=== PATIENT | female | born 1950 | race Caucasian/White ===

== ENCOUNTER 2018-06-26 12:13 | Observation (INO) ==
[2018-06-26] MEDS ORDERED: Ipratropium/Albuterol Neb 3 ML IH ONE (13:13)
--- NOTE | 2018-06-26 13:16 | Emergency Department Note ---
Disposition Clinical Impression: Respiratory distress Reactive airway disease Qualifiers: Asthma severity: severe Asthma persistence: persistent Asthma complication type: with acute exacerbation Qualified Code(s): J45.51 - Severe persistent asthma with (acute) exacerbation Disposition: Admitted As Inpatient Condition: Fair Time of Disposition: 13:16 General Adult HPI - General Chief complaint: ED Shortness of Breath/Dyspnea Stated complaint: KIMBERLEY,bronchitis Time Seen by Provider: 06/26/18 12:28 Source: patient, family Limitations: no limitations Nursing Notes Reviewed: Yes Vital Signs Reviewed: Yes - History of Present Illness HPI Narrative: Presents with shortness of breath which began Friday night and gradually worsened and he came worse on Friday and then Friday went to hold her emergency department and was prescribed medication including breathing treatment and prednisone is not improved her symptoms. Her shortness of breath is constant and worse with exertion and she does have associated chest pressure which is also worse with exertion. Get some blurred vision with exertion and she denies any fevers. Cough but no hemoptysis. Some rhinorrhea. No sneezing. No blood in the urine or stool. No pain or swelling or numbness of the extremities. No bruising of the skin or skin rash. No diagnosis of COPD. Social history: Started smoking 5 or 6 years ago and does smoke. Is here with her son and [id number]. Pain Scale: 0 - Related Data Home Medications Medication Instructions Recorded Confirmed Albuterol Sulfate [Ventolin Hfa] 2 puff IH Q4H PRN 06/26/18 06/26/18 Hydrocodone/Acetaminophen [[place] 1 tab PO BID PRN 06/26/18 06/26/18 5-325 Tablet] OxyCODONE/APAP 10/325 [Percocet 0.5 tab PO BID PRN 06/26/18 06/26/18 10/325 MG] Potassium Chloride [Klor-Con 10] 10 meq PO DAILY 06/26/18 06/26/18 RX: Gabapentin [Neurontin] 300 mg PO TID 06/26/18 06/26/18 RX: MethylPREDNISolone 1 each PO PER PKG DI 06/26/18 06/26/18 [MethylPREDNISolone Dose Pack] RX: Sertraline [Zoloft] 25 mg PO QAM 06/26/18 06/26/18 RX: Sertraline [Zoloft] 50 mg PO HS 06/26/18 06/26/18 RX: Trazodone HCl 150 mg PO HS 06/26/18 06/26/18 RX: Triamterene/HCTZ 37.5/25mg 1 tab PO DAILY 06/26/18 06/26/18 [Dyazide] levoFLOXacin [Levofloxacin] 500 mg PO DAILY 06/26/18 06/26/18 Allergies Allergy/AdvReac Type Severity Reaction Status Date / Time No Known Allergies Allergy Verified 06/26/18 21:56 All systems ED: reviewed and negative except as stated. Review of Systems: As Per HPI Past Medical History - Past Medical History Medical history: Reports: hypertension Psychiatric history: Reports: no psych history - Social History Smoking Status: Current every day smoker Smokeless Tobacco Status: No Alcohol use: Reports: heavy Drug use: Reports: none Physical Exam CONSTITUTIONAL: Alert and oriented X3, well-nourished, well appearing, in moderate respiratory distress HEAD: Normocephalic; atraumatic. EYES: PERRL, no scleral icterus. NOSE: The nose is normal in appearance without rhinorrhea RESP: Normal chest excursion with respiration; breath sounds with bilateral wheezing which is symmetric CARD: Regular rhythm, without murmurs, rub or gallop ABD: Non-distended; non-tender, soft,without rigidity, rebound or guarding SKIN: Normal for age and race; warm and dry; no apparent lesions EXTREMITIES: Pulses are 2 plus and equal times 4 extremities, no peripheral edema or calf muscle pain. - General Limitations: no limitations General appearance: alert Course Vital Signs Temperature 97.8 F 06/26/18 12:18 Pulse Rate 60 06/26/18 12:18 Respiratory Rate 22 06/26/18 12:18 Blood Pressure 176/65 06/26/18 12:18 O2 Sat by Pulse Oximetry 99 06/26/18 12:18 Temperature 98.4 F 06/26/18 19:53 Pulse Rate 65 06/26/18 19:53 Respiratory Rate 18 06/26/18 19:53 Blood Pressure 155/67 06/26/18 19:53 O2 Sat by Pulse Oximetry 100 06/26/18 19:53 Oxygen Delivery Oxygen Delivery Room Air Medical Decision Making - MDM Narrative Medical decision making narrative: The patient will have 3 duo nebs, chest x-ray, IV Solu-Medrol, labs. EKG. She does have respiratory distress and will be admitted for likely COPD exacerbation. We are attempting to get the records from [facility]. 1328 I did review the EKG showing normal sinus rhythm with a rate of 60 and without acute ischemic change or evidence of [id number] I did review the records from [facility] and she did have a CT scan which was a CTA of the chest which is negative for pulmonary embolism, had a ultrasound so troponin which was just at the lower limit of abnormal at 0.056, she also had a BNP which is only minimally elevated. Chest x-ray negative here. I do not suspect heart failure. She does have bilateral wheezing. Most consistent with COPD exacerbation. With respiratory distress she will be admitted to the hospital. With a negative chest x-ray and the negative CT from [facility] I will start her on IV antibiotics and we will put her on Rocephin and Zithromax 1411 I did review the patient's final test results. I did speak with the hospitalist who accepts the patient for admission for COPD exacerbation. Her BNP is elevated and we did discuss the possibility of echocardiogram as an inpatient however without having findings of peripheral edema or pulmonary edema most likely the reason for her respiratory distress is the COPD exacerbation 1453 - Medical Records Medical records reviewed: Yes I reviewed the patient's medical records. - Lab Data Lab results reviewed: Yes I reviewed the patient's lab results. Result diagrams: 06/26/18 13:38 06/26/18 13:38 Lab Results 06/26/18 06/26/18 06/26/18 Range/Units 13:38 13:38 13:38 WBC 10.5 (4.3-11.1) K/mcL RBC 4.82 (3.82-4.97) M/mcL Hgb 15.4 (11.5-15.4) g/dL Hct 44.7 (35.3-44.9) % MCV 92.7 (83.0-100.0) fL MCH 32.0 (28.0-33.3) pg MCHC 34.5 (31.6-35.5) g/dL RDW 13.0 (11.5-14.5) % Plt Count 177 (140-400) K/mcL MPV 9.3 L (9.4-12.4) fL Immature Gran % 0.4 (0-4) % Seg Neutrophils % 78.4 % Lymphocytes % 13.2 % Monocytes % 7.4 % Eosinophils % 0.1 % Basophils % 0.5 % Neutrophils # 8.2 (1.6-8.9) K/mcL Lymphocytes # 1.4 (0.6-4.6) K/mcL Monocytes # 0.8 (0.0-1.3) K/mcL Eosinophils # 0.0 (0.0-0.6) K/mcL Basophils # 0.1 (0.0-0.2) K/mcL Sodium 133 L (136-145) mEq/L Potassium 3.2 L (3.5-5.1) mEq/L Chloride 104 (98-107) mEq/L Carbon Dioxide 22 L (23-29) mEq/L BUN 13 (8-23) mg/dL Creatinine 0.81 (0.60-1.20) mg/dL Est GFR ( Amer) > 60 (> 60) Est GFR (Non-Af Amer) > 60 (> 60) BUN/Creatinine Ratio 16 (6-26) Glucose 106 H (70-105) mg/dL Calculated Osmolality 277 L (280-300) Calcium 10.0 (8.6-10.3) mg/dL Troponin I < 0.03 (< 0.04) ng/mL B-Natriuretic Peptide 606 H (Less than 100) pg/mL - Radiology Data Radiology results reviewed: Yes I reviewed the patient's radiology results. Critical Care Time Critical Care Time: Yes Total Critical Care Time: 30 Attestation: Patient has critical care time spent with a respiratory distress, administration of multiple medications, review previous records including records from [facility] including imaging and testing from there as well as the testing from here and discussion with the hospitalist here
[2018-06-26] MEDS: methylPREDNISolone 125 MG/2 ML VIAL IVP ONE ×2 (13:23→15:34)
[2018-06-26 13:58] LABS: Basophils # 0.1 K/mcL (0.0-0.2); Basophils % 0.5 %; Eosinophils % 0.1 %; Hematocrit 44.7 % (35.3-44.9); Hemoglobin 15.4 g/dL (11.5-15.4); Immature Granulocytes % 0.4 % (0-4); Lymphocytes # 1.4 K/mcL (0.6-4.6); Lymphocytes % 13.2 %; Mean Corpuscular HGB Conc 34.5 g/dL (31.6-35.5); Mean Corpuscular Volume 92.7 fL (83.0-100.0); Mean Platelet Volume 9.3 fL (9.4-12.4); Monocytes # 0.8 K/mcL (0.0-1.3); Monocytes % 7.4 %; Neutrophils # 8.2 K/mcL (1.6-8.9); Platelet Count 177 K/mcL (140-400); Red Blood Count 4.82 M/mcL (3.82-4.97); Segmented Neutrophils % 78.4 %
[2018-06-26] MEDS ORDERED: Azithromycin 500 MG in D5% in Water 250 ML IVPB ONE (14:11)
[2018-06-26] MEDS ORDERED: cefTRIAXone 1,000 MG in Water for inj. (sterile) 20 ML 10 ML IVP ONE (14:20)
[2018-06-26 14:23] LABS: BUN/Creatinine Ratio 16 (6-26); Blood Urea Nitrogen 13 mg/dL (8-23); Carbon Dioxide 22 mEq/L (23-29); Chloride 104 mEq/L (98-107); Glucose 106 mg/dL (70-105); Osmolality,Calculated 277 (280-300); Potassium 3.2 mEq/L (3.5-5.1); Sodium 133 mEq/L (136-145); Troponin I < 0.03 ng/mL (< 0.04); eGFR For Non-African Americans > 60 (> 60)
[2018-06-26] MEDS ORDERED: Ondansetron 4 MG/2 ML VIAL IVP PRN (14:51)
[2018-06-26] MEDS ORDERED: Naloxone 0.4 MG/ML INJ IVP PRN (14:51)
[2018-06-26] MEDS ORDERED: *HR* Labetalol 20 MG/4 ML SYRINGE IVP PRN (14:53)
[2018-06-26] MEDS ORDERED: predniSONE 20 MG TABLET PO ONE (15:30)
[2018-06-26] MEDS ORDERED: Azithromycin 250 MG TABLET PO ONE (15:30)
[2018-06-26] MEDS: Ipratropium/Albuterol Neb 3 ML IH SCH ×3 (15:32→23:23)
[2018-06-26] MEDS ORDERED: *HR* OxyCODONE/APAP 10/325 TABLET PO ONE (15:54)
--- NOTE | 2018-06-26 15:59 | Internal Med History&Physical ---
Date of Encounter: 06/26/18 Time of Encounter: 15:00 Internal Medicine - H&P: HPI Chief complaint: Shortness of breath Admitted From: Home History of present illness: Ms. Hodges is a 67 year old female with history of chronic low back pain, anxiety, tobacco abuse, presented to the ED with 5 day history of shortness of breath. She was initially seen at [facility] ER on 06/23 for the same complaint, had CTA done which was negative for PE/PNA, and was subsequently discharged home with a course of steroid as well as Ventolin PRN. However, her symptoms progressed since then and she decided to come to the ED for further evaluation. Complains of mild cough with sputum production but denies any chest pain, palpitation, orthopnea, PND, or leg swelling. No recent immobilization or surgery. Unsure of sick contacts. Denies any GI/ symptoms. In the ED, she was afebrile and hemodynamically stable. Saturating 97-100% on room air. Labwork was largely unremarkable except for mildly elevated BNP. Troponin negative, normal white blood cell count. X-ray did not show any significant cardiopulmonary process including pulmonary edema. EKG showed normal sinus rhythm without STT changes concerning for ischemia. Patient was given IV Solu-Medrol, bronchodilators, antibiotics, and admitted for further management. Past Med Surg Social Fam HX - Past Medical History Attestation: Yes The following information was validated with the patient. Medical history: hypertension Additional medical history: tobacco abuse ?COPD Psychiatric history: anxiety - Past Surgical History Additional surgical history: back surgery - Social History Smoking Status: Current every day smoker Smokeless Tobacco Status: No Alcohol use: heavy Drug use: none - Additional Family History Additional family history: Reviewed and noncontributory Internal Medicine - H&P: Meds Allergy/AdvReac Type Severity Reaction Status Date / Time No Known Allergies Allergy Verified 06/26/18 12:30 All Systems PM: A 10-system review of systems was performed and is negative for pertinent findings except as documented above in the HPI. - Constitutional Vitals: Temp Pulse Resp BP Pulse Ox 97.8 F 66 16 146/60 99 06/26/18 12:31 06/26/18 15:40 06/26/18 15:40 06/26/18 15:40 06/26/18 15:40 Exam: General: Alert and oriented, mild distress but able to speak in full sentences HEENT:EOMI, pupils equal, round and reactive. Cardiovascular:Normal S1 & S2, No JVD. Pulse regular. Lungs: scattered wheezes bilaterally Abdomen:Soft, non-tender, no rigidity. Extremities:No deformity or swelling Neurological:Anxious looking, grossly non-focal Skin:Normal color, no rash, no lesions. Pulses:Carotid and radial pulses normal +2. Rest of the physical exam is non contributory Internal Med - H&P Results - Labs CBC & Chem 7: 06/26/18 13:38 06/26/18 13:38 Labs: Short CBC 06/26/18 Range/Units 13:38 WBC 10.5 (4.3-11.1) K/mcL Hgb 15.4 (11.5-15.4) g/dL Hct 44.7 (35.3-44.9) % Plt Count 177 (140-400) K/mcL Neutrophils # 8.2 (1.6-8.9) K/mcL BMP 06/26/18 13:38 Sodium 133 L Potassium 3.2 L Chloride 104 Carbon Dioxide 22 L BUN 13 Creatinine 0.81 Glucose 106 H Calcium 10.0 Cardiac Enzymes 06/26/18 Range/Units 13:38 Troponin I < 0.03 (< 0.04) ng/mL - Impressions ITS Impressions Chest X-Ray 06/26/18 13:13 IMPRESSION: No radiographic evidence of acute cardiopulmonary disease. D/ / Edward Romero / Edward Romero Interpreting Provider: Edward Romero - Assessment and Plan (1) COPD exacerbation Current Visit: Yes Status: Acute Assessment and plan: History of extensive second-hand exposure as well as 6 pack year smoking history, admitted for progressive SOB despite being on steroids and PRN ventolin extensive workup at [facility] 3 days ago, -ve for PE/PNA no infiltrate on CXR, no fever/leukocytosis given solumedrol and bronchodilator in the ED, continue add macrolide for 5 days check resp infection panel smoking cessation emphasized PFT outpatient to establish diagnosis will get echocardiogram given elevated BNP although she does not clinically appear to be in fluid overload (2) Anxiety Current Visit: Yes Status: Acute Assessment and plan: PRN ativan (3) Tobacco abuse Current Visit: Yes Status: Chronic Assessment and plan: smoking cessation emphasized NRT (4) Chronic low back pain Current Visit: Yes Status: Chronic Assessment and plan: supposedly on percocet 10-325 PRN at home, not sure of frequency restart meds when reconciled Qualifiers: Back pain laterality: midline Sciatica presence: without sciatica Qualified Code(s): M54.5 - Low back pain; G89.29 - Other chronic pain (5) DVT prophylaxis Current Visit: Yes Status: Acute Assessment and plan: SQ heparin - Time Spent With Patient Total time spent is greater than 50% in coordination of care (as documented) at patient's floor/unit and/or counseling patient: 25 - 35 minutes
[2018-06-26] MEDS: *HR* Heparin 5,000 UNIT/ML VIAL SQ SCH (17:54)
[2018-06-26] MEDS: Nicotine 21 MG PATCH.TD24 TD SCH (17:54)
[2018-06-26 19:07] LABS: Adenovirus Not Detected (Not Detect); Bordetella Pertussis Not Detected (Not Detect); Chlamydophila pneumoniae Not Detected (Not Detect); Coronavirus 229E Not Detected (Not Detect); Coronavirus HKU1 Not Detected (Not Detect); Coronavirus NL63 Not Detected (Not Detect); Coronavirus OC43 Not Detected (Not Detect); Human Metapneumovirus Not Detected (Not Detect); Human Rhinovirus/Enterovirus Not Detected (Not Detect); Influenza A Subtype 2009 H1 Not Detected (Not Detect); Influenza A Untypeable Not Detected (Not Detect); Influenza B Not Detected (Not Detect); Mycoplasma pneumoniae Not Detected (Not Detect); Parainfluenza Virus 1 Not Detected (Not Detect); Parainfluenza Virus 2 Not Detected (Not Detect); Parainfluenza Virus 3 Not Detected (Not Detect); Parainfluenza Virus 4 Not Detected (Not Detect); Respiratory Syncytial Virus Not Detected (Not Detect)
[2018-06-26] MEDS: traZODone 50 MG TABLET PO SCH (23:48)
[2018-06-26] MEDS: Gabapentin 300 MG CAPSULE PO SCH (23:48)
[2018-06-27] MEDS: Ipratropium/Albuterol Neb 3 ML IH SCH ×5 (04:14→19:58)
[2018-06-27 05:42] LABS: Basophils % 0.3 %; Eosinophils % 0.1 %; Hematocrit 40.5 % (35.3-44.9); Immature Granulocytes % 0.5 % (0-4); Lymphocytes # 1.2 K/mcL (0.6-4.6); Mean Corpuscular HGB Conc 33.6 g/dL (31.6-35.5); Mean Corpuscular Hemoglobin 31.8 pg (28.0-33.3); Mean Corpuscular Volume 94.6 fL (83.0-100.0); Monocytes # 0.6 K/mcL (0.0-1.3); Monocytes % 8.1 %; Neutrophils # 5.7 K/mcL (1.6-8.9); Platelet Count 172 K/mcL (140-400); Red Blood Count 4.28 M/mcL (3.82-4.97); Red Cell Distribution Width 13.2 % (11.5-14.5)
[2018-06-27 05:53] LABS: Hemoglobin 13.6 g/dL (11.5-15.4)
[2018-06-27 05:59] LABS: BUN/Creatinine Ratio 17 (6-26); Blood Urea Nitrogen 12 mg/dL (8-23); Carbon Dioxide 24 mEq/L (23-29); Chloride 110 mEq/L (98-107); Glucose 118 mg/dL (70-105); Magnesium 1.7 mg/dL (1.6-2.6); Osmolality,Calculated 285 (280-300); Potassium 3.1 mEq/L (3.5-5.1); Sodium 137 mEq/L (136-145); eGFR For Non-African Americans > 60 (> 60)
[2018-06-27] MEDS: *HR* Heparin 5,000 UNIT/ML VIAL SQ SCH ×2 (06:17→17:46)
[2018-06-27] MEDS: Gabapentin 300 MG CAPSULE PO SCH ×3 (08:55→20:58)
[2018-06-27] MEDS: Nicotine 21 MG PATCH.TD24 TD SCH (08:55)
[2018-06-27] MEDS: MethylPREDNISolone 40 MG/ML VIAL IVP SCH ×2 (08:59→17:46)
--- NOTE | 2018-06-27 11:32 | Internal Med Progress Note ---
Hospitalist Progress Note - Encounter Date of Encounter: 06/27/18 Time of Encounter: 11:00 - Subjective Interval History: Patient is a 67-year-old female with past medical history significant for smoking and COPD who presents with shortness of breath found to have COPD exacerbation. - Exam Vitals: Temp Pulse Resp BP Pulse Ox 98.2 F 59 16 135/75 94 06/27/18 06:34 06/27/18 06:34 06/27/18 07:22 06/27/18 06:34 06/27/18 09:00 Exam: Gen.: Nonacute distress, alert and oriented 3 ENT: Mucosal membranes moist Respiratory: Lungs are clear to auscultation bilaterally without any wheezing rhonchi or rales Cardiovascular: Normal S1 and S2 regular rate rhythm no murmurs rubs or gallops Abdomen: Soft, nontender and nondistended with positive bowel sounds Extremities: No lower extremity edema Skin: Normal color - Assessment and Plan (1) COPD exacerbation Current Visit: Yes Status: Acute Assessment and Plan: Patient's acute hypoxic respiratory failure has resolved and is on room air Will continue IV Solu-Medrol in addition to IV azithromycin with scheduled DuoNeb's (2) Anxiety Current Visit: Yes Status: Acute Assessment and Plan: PRN ativan (3) Hypokalemia Current Visit: Yes Status: Acute Assessment and Plan: Potassium was 3.2 on admission and 3.1 this morning Patient currently receives potassium chloride 10 mEq daily Will give an additional 40 mEq this morning and monitor (4) Chronic low back pain Current Visit: Yes Status: Chronic Assessment and Plan: Continue home dose of pain medication (5) Tobacco abuse Current Visit: Yes Status: Chronic Assessment and Plan: Nicotine replacement as needed DVT Prophylaxis: Heparin subcutaneous - Time Spent with Patient Total time spent is greater than 50% in coordination of care (as documented) at patient's floor/unit and/or counseling patient: Internal Medicine: Result - Labs CBC & Chem 7: 06/27/18 04:00 06/27/18 04:00 Labs: Short CBC 06/26/18 06/27/18 Range/Units 13:38 04:00 WBC 10.5 7.6 (4.3-11.1) K/mcL Hgb 15.4 13.6 D (11.5-15.4) g/dL Hct 44.7 40.5 (35.3-44.9) % Plt Count 177 172 (140-400) K/mcL Neutrophils # 8.2 5.7 (1.6-8.9) K/mcL BMP 06/26/18 06/27/18 13:38 04:00 Sodium 133 L 137 Potassium 3.2 L 3.1 L Chloride 104 110 H Carbon Dioxide 22 L 24 BUN 13 12 Creatinine 0.81 0.72 Glucose 106 H 118 H Calcium 10.0 9.0 Cardiac Enzymes 06/26/18 Range/Units 13:38 Troponin I < 0.03 (< 0.04) ng/mL - Impressions Impressions Chest X-Ray 06/26/18 13:13 IMPRESSION: No radiographic evidence of acute cardiopulmonary disease. D/ / Edward Romero / Edward Romero Interpreting Provider: Edward Romero Consult Discharge Plan - Plan Referrals: Alexandro Olivier DO [Primary Care Provider] - (4) Chronic low back pain Qualifiers: Back pain laterality: midline Sciatica presence: without sciatica Qualified Code(s): M54.5 - Low back pain; G89.29 - Other chronic pain
[2018-06-27] MEDS: *HR* HYDROcodone/Acet 5/325 mg TABLET PO PRN ×2 (14:26→23:00)
[2018-06-27] MEDS: Azithromycin 250 MG TABLET PO SCH (14:26)
[2018-06-27] MEDS: traZODone 50 MG TABLET PO SCH (20:58)
[2018-06-28] MEDS: Ipratropium/Albuterol Neb 3 ML IH SCH ×7 (00:37→23:24)
[2018-06-28] MEDS: *HR* Heparin 5,000 UNIT/ML VIAL SQ SCH ×2 (06:09→18:22)
[2018-06-28] MEDS: MethylPREDNISolone 40 MG/ML VIAL IVP SCH ×2 (06:23→18:22)
[2018-06-28] MEDS: Gabapentin 300 MG CAPSULE PO SCH ×3 (08:48→20:38)
[2018-06-28] MEDS: *HR* HYDROcodone/Acet 5/325 mg TABLET PO PRN ×2 (08:48→20:38)
[2018-06-28] MEDS: Nicotine 21 MG PATCH.TD24 TD SCH (08:48)
--- NOTE | 2018-06-28 11:13 | Internal Med Progress Note ---
Hospitalist Progress Note - Encounter Date of Encounter: 06/28/18 Time of Encounter: 11:00 - Subjective Interval History: Patient is a 67-year-old female with past medical history significant for smoking and COPD who presents with shortness of breath found to have COPD exacerbation. - Exam Vitals: Temp Pulse Resp BP Pulse Ox 98.1 F 54 16 154/79 95 06/28/18 06:53 06/28/18 06:53 06/28/18 07:29 06/28/18 06:53 06/28/18 08:53 Exam: Gen.: Nonacute distress, alert and oriented 3 ENT: Mucosal membranes moist Respiratory: Lungs are clear to auscultation bilaterally without any wheezing rhonchi or rales Cardiovascular: Normal S1 and S2 regular rate rhythm no murmurs rubs or gallops Abdomen: Soft, nontender and nondistended with positive bowel sounds Extremities: No lower extremity edema Skin: Normal color - Assessment and Plan (1) COPD exacerbation Current Visit: Yes Status: Acute Assessment and Plan: Patient's acute hypoxic respiratory failure has resolved and is on room air Will continue day 2 of IV azithromycin in addition to scheduled dual nebs and IV Solu-Medrol (2) Anxiety Current Visit: Yes Status: Acute Assessment and Plan: PRN ativan (3) Hypokalemia Current Visit: Yes Status: Acute Assessment and Plan: Potassium was 3.2 on admission and 3.1 yesterday She was given an additional dose of 40 mEq of KCl in addition to her daily dose of 10 mEq Will continue to monitor (4) Chronic low back pain Current Visit: Yes Status: Chronic Assessment and Plan: Continue home dose of pain medication (5) Tobacco abuse Current Visit: Yes Status: Chronic Assessment and Plan: Nicotine replacement as needed DVT Prophylaxis: Heparin subcutaneous - Time Spent with Patient Total time spent is greater than 50% in coordination of care (as documented) at patient's floor/unit and/or counseling patient: Internal Medicine: Result - Labs CBC & Chem 7: 06/28/18 11:30 06/28/18 11:30 - Impressions Impressions Echocardiogram 06/26/18 15:54 Impressions: LVEF 60%. Mild left ventricular diastolic dysfunction. Normal right ventricular structure and function. Moderately dilated left atrium. Mild aortic stenosis. Unable to estimate RVSP due to lack of TR jet. Left Ventricular Wall Motion: Rest Echo Findings All wall segments showed normal motion. Findings: Study Quality * Technically adequate exam. ECG Findings * Normal sinus rhythm. Left Ventricle * LVEF 60%. * Mildly dilated left ventricle. * Mild left ventricular diastolic dysfunction. Right Ventricle * Normal right ventricular structure and function. Left Atrium * Moderately dilated left atrium. Right Atrium * Normal right atrial size. Interatrial Septum * No evidence of PFO by color Doppler. Aortic Valve * Trileaflet aortic valve. * Mild aortic stenosis. * The estimated aortic valve area was approximately 1.6 cm2. * Mild aortic regurgitation. * Mildly sclerotic aortic valve leaflets. Mitral Valve * Normal mitral valve structure. * No mitral regurgitation. * No mitral stenosis. Tricuspid Valve * Trace tricuspid regurgitation. * No tricuspid stenosis. * Normal tricuspid valve structure. * Unable to estimate RVSP due to lack of TR jet. Pulmonic Valve * Trace pulmonic regurgitation. Aorta * Normally sized aortic root. Pericardium * The pericardium appears normal. IVC * Normal IVC dimensions and inspiratory collapse. Pulmonary Artery * Normal visualized portions of the main pulmonary artery. Consult Discharge Plan - Plan Referrals: Alexandro Olivier DO [Primary Care Provider] - (Follow up appointment has been requested. Office will call with date and time of appointment. ) (4) Chronic low back pain Qualifiers: Back pain laterality: midline Sciatica presence: without sciatica Qualified Code(s): M54.5 - Low back pain; G89.29 - Other chronic pain
[2018-06-28 11:48] LABS: Basophils % 0.1 %; Eosinophils % 0.1 %; Hematocrit 43.6 % (35.3-44.9); Hemoglobin 14.7 g/dL (11.5-15.4); Immature Granulocytes % 0.5 % (0-4); Lymphocytes # 0.7 K/mcL (0.6-4.6); Lymphocytes % 7.3 %; Mean Corpuscular HGB Conc 33.7 g/dL (31.6-35.5); Mean Corpuscular Hemoglobin 32.1 pg (28.0-33.3); Mean Corpuscular Volume 95.2 fL (83.0-100.0); Monocytes # 0.4 K/mcL (0.0-1.3); Monocytes % 4.6 %; Neutrophils # 8.3 K/mcL (1.6-8.9); Platelet Count 202 K/mcL (140-400); Red Blood Count 4.58 M/mcL (3.82-4.97); Red Cell Distribution Width 13.3 % (11.5-14.5); Segmented Neutrophils % 87.4 %
[2018-06-28 12:08] LABS: BUN/Creatinine Ratio 27 (6-26); Blood Urea Nitrogen 25 mg/dL (8-23); Calcium 9.3 mg/dL (8.6-10.3); Carbon Dioxide 22 mEq/L (23-29); Chloride 107 mEq/L (98-107); Glucose 152 mg/dL (70-105); Osmolality,Calculated 291 (280-300); Sodium 137 mEq/L (136-145); eGFR For Non-African Americans 59 (> 60)
[2018-06-28] MEDS: Azithromycin 250 MG TABLET PO SCH (15:01)
[2018-06-28] MEDS: *HR* LORazepam 2 MG/ML VIAL IVP PRN (20:29)
[2018-06-28] MEDS: traZODone 50 MG TABLET PO SCH (20:38)
[2018-06-29] MEDS ORDERED: Ipratropium/Albuterol Neb 3 ML IH PRN (03:32)
[2018-06-29] MEDS: *HR* Heparin 5,000 UNIT/ML VIAL SQ SCH ×2 (05:25→18:04)
[2018-06-29] MEDS: MethylPREDNISolone 40 MG/ML VIAL IVP SCH ×2 (05:28→18:04)
[2018-06-29] MEDS: *HR* LORazepam 2 MG/ML VIAL IVP PRN ×2 (06:08→15:50)
[2018-06-29] MEDS: Gabapentin 300 MG CAPSULE PO SCH ×2 (09:27→14:42)
[2018-06-29] MEDS: Nicotine 21 MG PATCH.TD24 TD SCH (09:28)
--- NOTE | 2018-06-29 10:09 | Internal Med Progress Note ---
Hospitalist Progress Note - Encounter Date of Encounter: 06/29/18 - Exam Vitals: Temp Pulse Resp BP Pulse Ox 98.1 F 59 16 122/74 96 06/29/18 07:23 06/29/18 07:23 06/29/18 07:23 06/29/18 07:23 06/29/18 09:44 - Assessment and Plan (1) COPD exacerbation Current Visit: Yes Status: Acute (2) Anxiety Current Visit: Yes Status: Acute (3) Hypokalemia Current Visit: Yes Status: Acute (4) Chronic low back pain Current Visit: Yes Status: Chronic (5) Tobacco abuse Current Visit: Yes Status: Chronic - Time Spent with Patient Total time spent is greater than 50% in coordination of care (as documented) at patient's floor/unit and/or counseling patient: Internal Medicine: Result - Labs CBC & Chem 7: 06/28/18 11:30 06/28/18 11:30 Labs: Short CBC 06/28/18 Range/Units 11:30 WBC 9.5 (4.3-11.1) K/mcL Hgb 14.7 (11.5-15.4) g/dL Hct 43.6 (35.3-44.9) % Plt Count 202 (140-400) K/mcL Neutrophils # 8.3 (1.6-8.9) K/mcL BMP 06/28/18 11:30 Sodium 137 Potassium 4.0 Chloride 107 Carbon Dioxide 22 L BUN 25 H Creatinine 0.94 Glucose 152 H Calcium 9.3 Consult Discharge Plan - Plan Referrals: Alexandro Olivier DO [Primary Care Provider] - 07/07/18 1:00 pm () (4) Chronic low back pain Qualifiers: Back pain laterality: midline Sciatica presence: without sciatica Qualified Code(s): M54.5 - Low back pain; G89.29 - Other chronic pain
[2018-06-29 11:56] LABS: Basophils % 0.2 %; Eosinophils % 0.1 %; Hematocrit 46.4 % (35.3-44.9); Hemoglobin 15.6 g/dL (11.5-15.4); Immature Granulocytes % 0.6 % (0-4); Lymphocytes # 0.8 K/mcL (0.6-4.6); Lymphocytes % 7.5 %; Mean Corpuscular HGB Conc 33.6 g/dL (31.6-35.5); Mean Corpuscular Hemoglobin 32.4 pg (28.0-33.3); Mean Corpuscular Volume 96.5 fL (83.0-100.0); Monocytes # 0.5 K/mcL (0.0-1.3); Monocytes % 4.4 %; Neutrophils # 9.4 K/mcL (1.6-8.9); Platelet Count 224 K/mcL (140-400); Red Blood Count 4.81 M/mcL (3.82-4.97); Red Cell Distribution Width 13.2 % (11.5-14.5); Segmented Neutrophils % 87.2 %
[2018-06-29 12:02] VITALS: BP 162/82
[2018-06-29 12:25] LABS: BUN/Creatinine Ratio 27 (6-26); Blood Urea Nitrogen 24 mg/dL (8-23); Calcium 9.3 mg/dL (8.6-10.3); Carbon Dioxide 21 mEq/L (23-29); Chloride 108 mEq/L (98-107); Glucose 143 mg/dL (70-105); Osmolality,Calculated 293 (280-300); Potassium 4.2 mEq/L (3.5-5.1); Sodium 138 mEq/L (136-145); eGFR For Non-African Americans > 60 (> 60)
[2018-06-29] MEDS: Azithromycin 250 MG TABLET PO SCH (14:42)
--- NOTE | 2018-06-29 16:08 | Discharge Summary ---
Orders not resulted at time of discharge: Pending orders 06/28/18 15:23 Culture,Stool [RM] Routine Date of Encounter: 06/29/18 Time of Encounter: 11:00 - Discharge Diagnosis (1) COPD exacerbation Priority: Primary Status: Acute (2) Anxiety Priority: Primary Status: Acute (3) Hypokalemia Priority: Primary Status: Acute (4) Chronic low back pain Priority: Primary Status: Chronic Qualifiers: Back pain laterality: midline Sciatica presence: without sciatica Qualified Code(s): M54.5 - Low back pain; G89.29 - Other chronic pain (5) Tobacco abuse Priority: Primary Status: Chronic Hospital course: Patient is a 67-year-old female with past medical history significant for chronic low back pain, anxiety, tobacco abuse, presented with shortness of breath. During patients hospital stay she was treated for COPD exacerbation which improved on IV antibiotics and IV Solu-Medrol. During patients hospital stay she was also given IV Ativan as needed for anxiety. Patient on day of discharge was very emotional and admits that depression and anxiety is getting worse after the of her . She denied any suicidal ideation however. Patient was recommended to follow-up with primary care provider as an outpatient who had been managing her depression/anxiety and patient agreed. Patient was discharged with a 30 day prescription for SSRI but not for benzodiazepines. Patient also will be discharged to complete a 5 day course of azithromycin and prednisone for COPD exacerbation. - Time Spent with Patient Total time spent providing and/or coordinating discharge services: Time spent: Greater than 30 minutes - Discharge Medications Prescriptions: New Azithromycin [Zithromax] 500 mg PO DAILY@1400 #10 tablet predniSONE [PredniSONE] 40 mg PO DAILY 5 Days #10 tablet Sertraline [Zoloft] 50 mg PO HS 30 Days tablet Continue Albuterol Sulfate [Ventolin Hfa] 2 puff IH Q4H PRN PRN Reason: Shortness Of Breath Gabapentin [Neurontin] 300 mg PO TID Hydrocodone/Acetaminophen [[place] 5-325 Tablet] 1 tab PO BID PRN PRN Reason: Pain MethylPREDNISolone [MethylPREDNISolone Dose Pack] 1 each PO PER PKG DI OxyCODONE/APAP 10/325 [Percocet 10/325 MG] 0.5 tab PO BID PRN PRN Reason: Pain Potassium Chloride [Klor-Con 10] 10 meq PO DAILY Sertraline [Zoloft] 50 mg PO HS Trazodone HCl 150 mg PO HS Triamterene/HCTZ 37.5/25mg [Dyazide] 1 tab PO DAILY Sertraline [Zoloft] 25 mg PO QAM #30 tablet Discontinued levoFLOXacin [Levofloxacin] 500 mg PO DAILY Home Medications: Albuterol Sulfate [Ventolin Hfa] 2 puff IH Q4H PRN 06/26/18 [History] Gabapentin [Neurontin] 300 mg PO TID 06/26/18 [History] Hydrocodone/Acetaminophen [[place] 5-325 Tablet] 1 tab PO BID PRN 06/26/18 [History] MethylPREDNISolone [MethylPREDNISolone Dose Pack] 1 each PO PER PKG DI 06/26/18 [History] OxyCODONE/APAP 10/325 [Percocet 10/325 MG] 0.5 tab PO BID PRN 06/26/18 [History] Potassium Chloride [Klor-Con 10] 10 meq PO DAILY 06/26/18 [History] Sertraline [Zoloft] 50 mg PO HS 06/26/18 [History] Trazodone HCl 150 mg PO HS 06/26/18 [History] Triamterene/HCTZ 37.5/25mg [Dyazide] 1 tab PO DAILY 06/26/18 [History] Azithromycin [Zithromax] 500 mg PO DAILY@1400 #10 tablet 06/29/18 [Rx] Sertraline [Zoloft] 25 mg PO QAM #30 tablet 06/29/18 [Rx] Sertraline [Zoloft] 50 mg PO HS 30 Days tablet 06/29/18 [Rx] predniSONE [PredniSONE] 40 mg PO DAILY 5 Days #10 tablet 06/29/18 [Rx] Allergies/Adverse Reactions: Allergy/AdvReac Type Severity Reaction Status Date / Time No Known Allergies Allergy Verified 06/26/18 21:56 Date of admission: 06/26/18 15:01 Primary care physician: Alexandro Olivier DO Consults: 06/26/18 15:51 Consult to Invasive Line Access Team [CONS] Routine Reason for Consult: limited access Line Type: EPIV 06/29/18 08:32 Consult to Nurse Navigator [CONS] Routine Comment: COPD - Constitutional Vitals: Temp Pulse Resp BP Pulse Ox 98.3 F 66 16 162/82 95 06/29/18 12:01 06/29/18 12:01 06/29/18 12:01 06/29/18 12:01 06/29/18 12:01 Exam: Gen.: Nonacute distress, alert and oriented 3 Skin: Normal color - Patient Status Disposition: Home, Self-Care Condition: Fair - Discharge Instructions Instructions: Chronic Obstructive Pulmonary Disease (DC) Follow Up With: Alexandro Olivier DO [Primary Care Provider] - 07/07/18 1:00 pm ()
--- NOTE | 2018-06-30 11:18 | Electrocardiograph Report ---
[facility] Test Date: 2018-06-26 Pat Name: Daina Hodges Department: [id number] Room: 3B22 Gender: Business Analytics Analyst: : [id number] Requested By: Griffin Monroe Order Number: [id number] Reading MD: Jaswant Benitez Measurements Intervals [place] Rate: 60 P: 35 MI: 130 QRS: 54 QRSD: 87 T: 28 QT: 486 QTc: 486 Interpretive Statements Sinus rhythm Borderline prolonged QT interval Electronically Signed On 06-30-2018 11:16:43 EST by Jaswant Benitez
== END 2018-06-29 18:41 | disposition home or self-care (01) ==
LOC: EMEROOARM 12:13 → 3BNU 12:13 → SUATTDRO 15:01 → 3BNU 16:10
PROVIDERS: ADMIT Internal Medicine; ATTEND Hospitalist

== ENCOUNTER 2019-11-25 22:38 | Observation (INO) ==
[2019-11-25 23:33] LABS: Basophils # 0.1 K/mcL (0.0-0.2); Basophils % 1.2 %; Eosinophils # 0.2 K/mcL (0.0-0.6); Eosinophils % 2.9 %; Hematocrit 37.6 % (35.3-44.9); Hemoglobin 12.4 g/dL (11.5-15.4); Immature Granulocytes % 0.1 % (0-4); Lymphocytes # 2.4 K/mcL (0.6-4.6); Lymphocytes % 34.9 %; Mean Corpuscular Hemoglobin 30.1 pg (28.0-33.3); Mean Corpuscular Volume 91.3 fL (83.0-100.0); Mean Platelet Volume 9.6 fL (9.4-12.4); Monocytes # 0.5 K/mcL (0.0-1.3); Monocytes % 6.6 %; Neutrophils # 3.7 K/mcL (1.6-8.9); Platelet Count 200 K/mcL (140-400); Red Blood Count 4.12 M/mcL (3.82-4.97); Red Cell Distribution Width 12.1 % (11.5-14.5); Segmented Neutrophils % 54.3 %; White Blood Count 6.9 K/mcL (4.3-11.1)
[2019-11-25 23:59] LABS: BUN/Creatinine Ratio 12 (6-26); Blood Urea Nitrogen 14 mg/dL (8-23); Carbon Dioxide 21 mEq/L (23-29); Chloride 102 mEq/L (98-107); Glucose 87 mg/dL (70-105); Osmolality,Calculated 274 (280-300); Potassium 4.3 mEq/L (3.5-5.1); Sodium 132 mEq/L (136-145); eGFR For African Americans 58 (> 60); eGFR For Non-African Americans 48 (> 60)
[2019-11-26 00:01] LABS: Troponin I < 0.03 ng/mL (< 0.04)
[2019-11-26 00:14] LABS: Thyroid Stimulating Hormone 4.717 mcIU/mL (0.340-5.600)
[2019-11-26 00:54] LABS: Bilirubin,Urine Negative (Negative); Blood,Urine Negative (Negative); Clarity,Urine Clear (Clear); Color,Urine Light-Yellow (Yellow); Glucose,Urine (UA) Normal (Normal); Ketones,Urine Negative (Negative); Leukocyte Esterase,Urine Negative (Negative); Nitrite,Urine Negative (Negative); Protein,Urine Negative (Neg-Trace); Specific Gravity,Urine 1.008 (1.010-1.025); Urobilinogen,Urine Normal (Normal)
[2019-11-26] MEDS ORDERED: Isovue-370 500 ML BOTTLE IVP ONE (01:32)
[2019-11-26] MEDS ORDERED: Azithromycin 500 MG in 0.9 % Sodium Chloride 250 ML IVPB ONE (05:14)
[2019-11-26] MEDS ORDERED: methylPREDNISolone 125 MG/2 ML VIAL IVP ONE (05:14)
[2019-11-26 06:04] LABS: Adenovirus Not Detected (Not Detect); Coronavirus 229E Not Detected (Not Detect); Coronavirus HKU1 Not Detected (Not Detect); Coronavirus NL63 Not Detected (Not Detect); Coronavirus OC43 Not Detected (Not Detect); Human Metapneumovirus Not Detected (Not Detect); Human Rhinovirus/Enterovirus Not Detected (Not Detect); Influenza A Subtype 2009 H1 Not Detected (Not Detect); Influenza B Not Detected (Not Detect); Parainfluenza Virus 1 Not Detected (Not Detect); Parainfluenza Virus 2 Not Detected (Not Detect); Parainfluenza Virus 3 Not Detected (Not Detect)
[2019-11-26 06:05] LABS: Bordetella Pertussis Not Detected (Not Detect); Chlamydophila pneumoniae Not Detected (Not Detect); Mycoplasma pneumoniae Not Detected (Not Detect); Parainfluenza Virus 4 Not Detected (Not Detect); Respiratory Syncytial Virus Not Detected (Not Detect); SARS-CoV-2 Not Detected (Not Detect)
[2019-11-26] MEDS ORDERED: Ondansetron ODT 4 MG TAB.RAPDIS SL PRN (07:48)
[2019-11-26] MEDS ORDERED: Naloxone 0.4 MG/ML INJ IVP PRN (07:48)
[2019-11-26] MEDS ORDERED: Albuterol 2.5 MG/3 ML NEBULIZER IH PRN (07:50)
[2019-11-26] MEDS: Ipratropium/Albuterol Neb 3 ML IH SCH ×5 (08:41→23:07)
[2019-11-26] MEDS: cefTRIAXone 1,000 MG in Water for inj. (sterile) 10 ML IVP SCH (09:49)
[2019-11-26] MEDS: lisinopriL 10 MG TABLET PO SCH (09:49)
[2019-11-26] MEDS: predniSONE 20 MG TABLET PO SCH (09:49)
[2019-11-26] MEDS: *HR* Heparin 5,000 UNIT/ML VIAL SQ SCH (16:53)
[2019-11-26] MEDS: traZODone 50 MG TABLET PO SCH (22:33)
[2019-11-27] MEDS: Ipratropium/Albuterol Neb 3 ML IH SCH ×5 (03:25→20:38)
[2019-11-27] MEDS: *HR* Heparin 5,000 UNIT/ML VIAL SQ SCH ×2 (04:58→18:10)
[2019-11-27 05:03] LABS: Hematocrit 33.6 % (35.3-44.9); Hemoglobin 11.3 g/dL (11.5-15.4); Mean Corpuscular HGB Conc 33.6 g/dL (31.6-35.5); Mean Corpuscular Hemoglobin 30.8 pg (28.0-33.3); Mean Corpuscular Volume 91.6 fL (83.0-100.0); Mean Platelet Volume 9.6 fL (9.4-12.4); Platelet Count 193 K/mcL (140-400); Red Blood Count 3.67 M/mcL (3.82-4.97); Red Cell Distribution Width 11.9 % (11.5-14.5)
[2019-11-27 05:04] LABS: White Blood Count 10.4 K/mcL (4.3-11.1)
[2019-11-27 05:28] LABS: Calcium 8.8 mg/dL (8.6-10.3)
[2019-11-27] MEDS: cefTRIAXone 1,000 MG in Water for inj. (sterile) 10 ML IVP SCH (08:30)
[2019-11-27] MEDS: predniSONE 20 MG TABLET PO SCH (08:30)
[2019-11-27] MEDS: Azithromycin 500 MG in 0.9 % Sodium Chloride 250 ML IVPB SCH (08:30)
[2019-11-27] MEDS: lisinopriL 10 MG TABLET PO SCH (08:30)
[2019-11-27] MEDS: traZODone 50 MG TABLET PO SCH (20:15)
[2019-11-28 06:29] LABS: Hematocrit 34.2 % (35.3-44.9); Hemoglobin 11.2 g/dL (11.5-15.4); Mean Corpuscular HGB Conc 32.7 g/dL (31.6-35.5); Mean Corpuscular Hemoglobin 30.8 pg (28.0-33.3); Mean Platelet Volume 9.5 fL (9.4-12.4); Platelet Count 180 K/mcL (140-400); Red Blood Count 3.64 M/mcL (3.82-4.97); White Blood Count 10.2 K/mcL (4.3-11.1)
[2019-11-28 06:47] LABS: Calcium 8.2 mg/dL (8.6-10.3); Potassium 3.9 mEq/L (3.5-5.1)
[2019-11-28] MEDS: *HR* Heparin 5,000 UNIT/ML VIAL SQ SCH ×2 (06:47→18:47)
[2019-11-28] MEDS: Ipratropium/Albuterol Neb 3 ML IH SCH ×4 (07:51→19:49)
[2019-11-28] MEDS: lisinopriL 10 MG TABLET PO SCH (09:47)
[2019-11-28] MEDS: predniSONE 20 MG TABLET PO SCH (09:47)
[2019-11-28] MEDS: Azithromycin 250 MG TABLET PO SCH (09:47)
[2019-11-28] MEDS: Budesonide/Formoterol 160/4.5 1 PUFF INH IH SCH ×2 (11:17→19:49)
[2019-11-28] MEDS: Azithromycin 500 MG in 0.9 % Sodium Chloride 250 ML IVPB SCH (18:45)
[2019-11-28] MEDS: traZODone 50 MG TABLET PO SCH (21:36)
[2019-11-29 05:01] LABS: Hematocrit 34.7 % (35.3-44.9); Hemoglobin 11.2 g/dL (11.5-15.4); Mean Corpuscular HGB Conc 32.3 g/dL (31.6-35.5); Mean Corpuscular Hemoglobin 30.6 pg (28.0-33.3); Mean Corpuscular Volume 94.8 fL (83.0-100.0); Mean Platelet Volume 9.5 fL (9.4-12.4); Platelet Count 208 K/mcL (140-400); Red Blood Count 3.66 M/mcL (3.82-4.97); White Blood Count 10.9 K/mcL (4.3-11.1)
[2019-11-29 05:18] LABS: Calcium 8.6 mg/dL (8.6-10.3); Potassium 3.8 mEq/L (3.5-5.1)
[2019-11-29] MEDS: *HR* Heparin 5,000 UNIT/ML VIAL SQ SCH (06:01)
[2019-11-29 06:25] VITALS: BP 109/57
[2019-11-29] MEDS ORDERED: 0.9 % Sodium Chloride 1,000 ML IVC SCH (07:30)
[2019-11-29] MEDS: Budesonide/Formoterol 160/4.5 1 PUFF INH IH SCH (07:49)
[2019-11-29] MEDS: Ipratropium/Albuterol Neb 3 ML IH SCH ×2 (07:49→11:57)
[2019-11-29] MEDS: Azithromycin 250 MG TABLET PO SCH (09:21)
[2019-11-29] MEDS: predniSONE 20 MG TABLET PO SCH (09:21)
[2019-11-29] MEDS: lisinopriL 10 MG TABLET PO SCH (09:22)
== END 2019-11-29 13:30 | disposition home or self-care (01) ==
LOC: 3ANU 22:38 → EMEROOARM 22:38 → SUATTDRO 11-26 06:13 → 3ANU 11-26 07:07
PROVIDERS: ADMIT Student in an Organized Health Care Education/Training Program; ATTEND Internal Medicine

== ENCOUNTER 2021-10-12 14:53 | Observation (INO) ==
[2021-10-12 18:56] LABS: Basophils # 0.1 K/mcL (0.0-0.2); Basophils % 0.6 %; Eosinophils # 0.3 K/mcL (0.0-0.6); Hematocrit 41.2 % (35.3-44.9); Hemoglobin 13.5 g/dL (11.5-15.4); Immature Granulocytes % 0.1 % (0-4); Lymphocytes # 2.2 K/mcL (0.6-4.6); Mean Corpuscular HGB Conc 32.8 g/dL (31.6-35.5); Mean Corpuscular Hemoglobin 30.1 pg (28.0-33.3); Mean Corpuscular Volume 91.8 fL (83.0-100.0); Mean Platelet Volume 8.6 fL (9.4-12.4); Monocytes # 0.5 K/mcL (0.0-1.3); Neutrophils # 5.6 K/mcL (1.6-8.9); Platelet Count 155 K/mcL (140-400); Red Blood Count 4.49 M/mcL (3.82-4.97); Red Cell Distribution Width 13.1 % (11.5-14.5); Segmented Neutrophils % 65.3 %; White Blood Count 8.6 K/mcL (4.3-11.1)
[2021-10-12] MEDS ORDERED: Morphine Sulfate 2 MG/ML SYRINGE IVP ONE ×2 (18:59→22:14)
[2021-10-12] MEDS ORDERED: Iopamidol - 370 500 ML MLS IVP ONE (18:59)
[2021-10-12 19:18] LABS: Albumin 3.8 g/dL (3.5-5.7); Albumin/Globulin Ratio 1.4 (1.1-2.2); Bilirubin,Direct 0.1 mg/dL (0.0-0.2); Bilirubin,Indirect 0.5 mg/dL (0.0-1.0); Bilirubin,Total 0.6 mg/dL (0.3-1.0); Globulin 2.7 g/dL (2.4-3.5); Total Protein 6.5 g/dL (6.4-8.9)
[2021-10-12 19:56] LABS: Bilirubin,Urine Negative (Negative); Blood,Urine Negative (Negative); Clarity,Urine Clear (Clear); Color,Urine Light-Yellow (Yellow); Glucose,Urine (UA) Normal (Normal); Ketones,Urine Negative (Negative); Leukocyte Esterase,Urine Negative (Negative); Nitrite,Urine Negative (Negative); Protein,Urine Negative (Neg-Trace); Urobilinogen,Urine Normal (Normal)
[2021-10-12] MEDS ORDERED: Ketorolac 30 MG/ML VIAL IVP ONE (23:13)
[2021-10-13] MEDS ORDERED: Ketorolac 30 MG/ML VIAL IM PRN (02:51)
[2021-10-13] MEDS ORDERED: Acetaminophen 325 MG TABLET PO PRN (02:51)
[2021-10-13] MEDS ORDERED: Naloxone 0.4 MG/ML INJ IVP PRN (02:51)
[2021-10-13] MEDS ORDERED: Ondansetron 4 MG/2 ML VIAL IVP PRN (02:51)
[2021-10-13] MEDS: 0.9 % Sodium Chloride 1,000 ML IVC SCH ×2 (05:07→22:18)
[2021-10-13 05:45] LABS: Basophils # 0.1 K/mcL (0.0-0.2); Basophils % 0.8 %; Eosinophils # 0.3 K/mcL (0.0-0.6); Eosinophils % 3.8 %; Hematocrit 37.7 % (35.3-44.9); Hemoglobin 12.3 g/dL (11.5-15.4); Immature Granulocytes % 0.2 % (0-4); Lymphocytes # 2.2 K/mcL (0.6-4.6); Lymphocytes % 32.8 %; Mean Corpuscular HGB Conc 32.6 g/dL (31.6-35.5); Mean Corpuscular Hemoglobin 30.1 pg (28.0-33.3); Mean Corpuscular Volume 92.4 fL (83.0-100.0); Mean Platelet Volume 8.7 fL (9.4-12.4); Monocytes # 0.5 K/mcL (0.0-1.3); Monocytes % 7.2 %; Neutrophils # 3.7 K/mcL (1.6-8.9); Platelet Count 149 K/mcL (140-400); Red Blood Count 4.08 M/mcL (3.82-4.97); Red Cell Distribution Width 13.3 % (11.5-14.5); Segmented Neutrophils % 55.2 %; White Blood Count 6.6 K/mcL (4.3-11.1)
[2021-10-13 05:53] LABS: Prothrombin Time 11.3 Seconds (9.4-12.1)
[2021-10-13] MEDS ORDERED: BuPROPion SR (12 HR) 150 MG TABLET PO SCH (06:00)
[2021-10-13 06:21] LABS: Calcium 8.8 mg/dL (8.6-10.3); Phosphorous 4.5 mg/dL (2.7-4.5); Potassium 4.1 mEq/L (3.5-5.1); Thyroid Stimulating Hormone 2.743 mcIU/mL (0.340-5.600)
[2021-10-13] MEDS: amLODIPine 5 MG TABLET PO SCH (08:27)
[2021-10-13] MEDS: lisinopriL 20 MG TABLET PO SCH (08:28)
[2021-10-13] MEDS: Fluticasone Propionate Nasal 50 MCG/SPRAY BOTTLE NS SCH (08:28)
[2021-10-13] MEDS ORDERED: *HR* Enoxaparin 30 MG/0.3 ML SYRINGE SQ SCH (09:00)
[2021-10-13] MEDS ORDERED: Gabapentin 300 MG CAPSULE PO SCH (09:00)
[2021-10-13] MEDS ORDERED: *HR* LORazepam 0.5 MG TABLET PO PRN (09:55)
[2021-10-13] MEDS: Budesonide/Formoterol 160/4.5 1 PUFF INH IH SCH ×2 (11:02→20:00)
[2021-10-13] MEDS: FLUoxetine 20 MG CAPSULE PO SCH (11:22)
[2021-10-13] MEDS: Loratadine 10 MG TABLET PO SCH (11:22)
[2021-10-13] MEDS: Bumetanide 1 MG TABLET PO SCH ×2 (11:40→17:29)
[2021-10-13] MEDS: *HR* OxyCODONE Immed Rel 15 MG TABLET PO PRN ×2 (12:02→20:16)
[2021-10-13 12:29] LABS: Sodium, Urine 35.2 mEq/L
[2021-10-13] MEDS: Pantoprazole 40 MG VIAL IVP SCH (17:29)
[2021-10-13] MEDS: Sucralfate 1 GM TABLET PO SCH ×2 (17:29→20:16)
[2021-10-13] MEDS ORDERED: traZODone 50 MG TABLET PO SCH (21:00)
[2021-10-14 03:12] VITALS: O2SAT 93
[2021-10-14 04:45] LABS: Basophils % 0.6 %; Eosinophils # 0.2 K/mcL (0.0-0.6); Eosinophils % 2.9 %; Hematocrit 37.1 % (35.3-44.9); Immature Granulocytes % 0.3 % (0-4); Lymphocytes # 1.9 K/mcL (0.6-4.6); Lymphocytes % 27.9 %; Mean Corpuscular HGB Conc 32.3 g/dL (31.6-35.5); Mean Corpuscular Hemoglobin 29.4 pg (28.0-33.3); Mean Corpuscular Volume 90.9 fL (83.0-100.0); Mean Platelet Volume 8.7 fL (9.4-12.4); Monocytes # 0.4 K/mcL (0.0-1.3); Monocytes % 6.5 %; Neutrophils # 4.2 K/mcL (1.6-8.9); Platelet Count 160 K/mcL (140-400); Red Blood Count 4.08 M/mcL (3.82-4.97); Segmented Neutrophils % 61.8 %; White Blood Count 6.8 K/mcL (4.3-11.1)
[2021-10-14] MEDS: Pantoprazole 40 MG VIAL IVP SCH (05:05)
[2021-10-14 05:12] LABS: Albumin 3.3 g/dL (3.5-5.7); Albumin/Globulin Ratio 1.4 (1.1-2.2); Bilirubin,Total 0.5 mg/dL (0.3-1.0); Calcium 8.7 mg/dL (8.6-10.3); Globulin 2.3 g/dL (2.4-3.5); Potassium 4.4 mEq/L (3.5-5.1); Total Protein 5.6 g/dL (6.4-8.9)
[2021-10-14 07:06] VITALS: BP 148/56; PULSE 56; TEMP 98.3
[2021-10-14] MEDS: FLUoxetine 20 MG CAPSULE PO SCH (08:26)
[2021-10-14] MEDS: Bumetanide 1 MG TABLET PO SCH (08:26)
[2021-10-14] MEDS: Sucralfate 1 GM TABLET PO SCH (08:26)
[2021-10-14] MEDS: amLODIPine 5 MG TABLET PO SCH (08:26)
[2021-10-14] MEDS: Loratadine 10 MG TABLET PO SCH (08:26)
[2021-10-14] MEDS: lisinopriL 20 MG TABLET PO SCH (08:27)
[2021-10-14] MEDS: Fluticasone Propionate Nasal 50 MCG/SPRAY BOTTLE NS SCH (08:28)
[2021-10-14] MEDS ORDERED: *HR* Enoxaparin 40 MG/0.4 ML SYRINGE SQ SCH (09:00)
[2021-10-14] MEDS: Budesonide/Formoterol 160/4.5 1 PUFF INH IH SCH (10:08)
== END 2021-10-14 11:49 | disposition home or self-care (01) ==
LOC: 3BNU 14:53 → EMEROOARM 14:53 → SUATTDRO 10-13 00:54 → 3BNU 10-13 01:30
PROVIDERS: ADMIT Student in an Organized Health Care Education/Training Program; ATTEND Nurse Practitioner